=== PATIENT | male | born 1985 | race Caucasian/White ===

== ENCOUNTER 2023-01-28 13:41 | Emergency (ER) | payer OTHER, SELFPAY ==
[2023-01-28 13:42] VITALS: BP 159/109; PULSE 78; RESP 17; TEMP 36.9; O2SAT 95; BMI 31.3
--- NOTE | 2023-01-28 13:46 | ED_ITS ---
HPI - Extremity Injury (Upper) General: Chief Complaint: Wound/Laceration Stated Complaint: right arm laceration Time Seen by Provider: 01/28/23 13:42 Source: patient Mode of arrival: ambulatory Limitations: no limitations History of Present Illness: 37-year-old male states that he had struck himself in the right forearm with an ax just prior to arrival he does have a 4 cm laceration to his right forearm bleeding is controlled. He has full range of motion of his hand he rates his pain a 2 out of 10 currently he is unsure when his last tetanus was Associated symptoms: Denies neck pain Review of Systems Const: Denies: fever(s), chills, body aches or change in appetite ENMT: Denies: throat pain or dental pain Card: Denies: chest pain Resp: Denies: dyspnea GI: Denies: abdominal pain, nausea, vomiting or diarrhea Musc: Reports: extremity pain; Denies: neck pain or back pain Skin/Breast: Denies: rash Neuro: Denies: headache(s) Physical Exam Const: COMMON NORMALS: no acute distress and patient oriented x3 HENMT: COMMON NORMALS: normocephalic and atraumatic HEAD & SCALP: normocephalic and atraumatic Eye: COMMON NORMALS: conjunctivae normal CONJUNCTIVA: Yes conjunctivae normal Chest: COMMONS NORMALS: normal inspection of the chest Resp: COMMON NORMALS: normal respiratory effort Extremity: COMMON NORMALS: full ROM NARRATIVE EXTREMITY EXAM: 4 cm laceration noted to right forearm no tendon involvement he has good strength in all digits and wrist bleeding is controlled Neuro: COMMON NORMALS: patient oriented x3 Psych: COMMON NORMALS: mental status grossly normal Skin: COMMON NORMALS: no rashes or lesions noted GENERAL SKIN EXAM: no rashes or lesions noted Procedures Laceration Laceration 1: Site: upper extremity Side (If applicable): right Size (cm): 4 Description: linear Depth: simple, single layer Local Anesthetic: lidocaine 1% Amount of anesthesia used (mL): 8 Pre-repair: wound explored, irrigated extensively and deep structures intact Skin layer closed with: nylon Size (cm): 4-0 Number of sutures: 3 Technique: simple, interrupted MDM - Extremity Injury (Upper) Medical Decision Making Patient presents here with right forearm laceration x-ray showed no fractures he had no tendon involvement wound was sutured he is returning 2 weeks for suture removal. Medical Records I reviewed the patient's medical records. XR interpretation done by ED provider, pending radiology final review ED provider radiology interpretation(s): xr r forearm: no acute fx Discharge Plan Discharge Patient Disposition: Home Clinical Impression: Laceration Condition: Stable Discharge Orders: Discharge ED (Routine); Ordered 01/28/23 Ordered By: Jm More Referrals: Margo Ortiz APN [Staff Physician] - Discharge Diet: Advance as tolerated Discharge Activity: Resume usual activity Patient Instructions: Care For Your Stitches (ED), Laceration (ED) Activity Restrictions/Additional Instructions: Suture removal in 14 days Coding Level of Care Code ED [employer] for Virgen Mathews
--- NOTE | 2023-01-28 13:46 | XRR_ITS ---
PROCEDURE INFORMATION: Exam: XR Right Forearm Exam date and time: 01/28/2023 1:52 PM Age: 37 years old Clinical indication: Injury or trauma; Other: Axe injury; Laceration; Arm, lower; Right TECHNIQUE: Imaging protocol: Radiologic exam of the right forearm. Views: 2 views. COMPARISON: No relevant prior studies available. FINDINGS: Bones/joints: Normal. Soft tissues: No evidence of radiopaque foreign body. XR/XR forearm RT 2V [id number] IMPRESSION: No acute findings.
[2023-01-28] MEDS: tetanus-dipt-pertussis 0.5 mL SDV IM (14:26)
== END 2023-01-28 14:32 | disposition home or self-care (01) ==
PROVIDERS: Emergency Provider Emergency Medicine; PCP Internal Medicine
DX: S51.811A Laceration without foreign body of right forearm, initial encounter (principal); W27.0XXA Contact with workbench tool, initial encounter; Z23 Encounter for immunization
CPT/HCPCS: 12002; 73090; 90471; 90715; 99283